=== PATIENT | female | born 1960 | race Asian ===

== ENCOUNTER 2016-10-17 17:48 | Observation (INO) | payer BC ==
[~2016-10-17] VITALS: Ht 160 cm; Wt 78.6 kg
[2016-10-17] MEDS ORDERED: ATEN50TA41 PO (18:16)
[2016-10-17] MEDS ORDERED: METF500T4 PO (18:16)
[2016-10-17] MEDS ORDERED: SODIUM CHLORIDE 0.9% 1,000 ML IV ONE (18:16)
[2016-10-17] MEDS ORDERED: SITA50TA PO (18:16)
[2016-10-17] MEDS ORDERED: LISI-170 PO (18:16)
[2016-10-17] MEDS ORDERED: MORPHINE SULFATE 4 MG/ML, 1ML IVPush ONE (18:30)
[2016-10-17] MEDS ORDERED: LORazepam 2 MG/ML, 1ML IVPush ONE (18:30)
[2016-10-17] MEDS ORDERED: ASPIRIN 81 MG TABLET CHEW PO ONE (18:30)
[2016-10-17] MEDS ORDERED: SODIUM CHLORIDE FLUSH 10ML SYR IVF ONE (18:30)
[2016-10-17] MEDS ORDERED: METOPROLOL 1 MG/ML, 5ML IVPush ONE (18:30)
[2016-10-17] MEDS ORDERED: NITROGLYCERIN OINT 2%, 1GM TP ONE ×2 (18:30→18:38)
[2016-10-17] MEDS ORDERED: MORPHINE SULFATE 4 MG/ML, 1ML ONE (18:38)
[2016-10-17] MEDS ORDERED: ONDANSETRON 2MG/ML, 2ML ONE (18:39)
[2016-10-17] MEDS ORDERED: LORazepam 2 MG/ML, 1ML ONE (18:39)
[2016-10-17] MEDS ORDERED: ASPIRIN 81 MG TABLET CHEW ONE (18:39)
[2016-10-17 18:57] LABS: BLOOD UREA NITROGEN 11 mg/dL (7-18)
[2016-10-17] MEDS ORDERED: PLEASE ENTER ALLERGIES MC SCH ×2 (19:00)
[2016-10-17] MEDS ORDERED: ONDANSETRON 2MG/ML, 2ML IVPush ONE (19:00)
[2016-10-17 19:02] LABS: ASPARTATE AMINO TRANSFERASE 105 U/L (15-37)
[2016-10-17 19:04] LABS: IS PT STATUS REG ER OR PRE ER? YES
[2016-10-17] MEDS ORDERED: ENALAPRILAT 1.25 MG/ML, 2ML IV ONE (20:00)
[2016-10-17] MEDS ORDERED: ACETAMINOPHEN 325 MG TABLET ONE (20:19)
[2016-10-17] MEDS ORDERED: ACETAMINOPHEN 325 MG TABLET PO ONE (20:30)
[2016-10-17 20:51] LABS: DAU SCREEN DISCLAIMER
[2016-10-17 21:01] LABS: PATH.CAST-FLAG NOT PRESENT; SPERM-FLAG NOT PRESENT; SRC-FLAG NOT PRESENT; XTAL-FLAG NOT PRESENT; YLC-FLAG NOT PRESENT
[2016-10-17] MEDS ORDERED: TEMAZEPAM 15 MG CAPSULE PO PRN (21:30)
[2016-10-17] MEDS ORDERED: DOCUSATE 100 MG CAPSULE PO PRN (21:30)
[2016-10-17] MEDS ORDERED: ONDANSETRON 2MG/ML, 2ML IVPush PRN (21:30)
[2016-10-17] MEDS: HEPARIN 5,000 UNITS/ML, 1ML SQ SCH (21:30)
[2016-10-17] MEDS ORDERED: ENALAPRILAT 1.25 MG/ML, 2ML IVPush PRN (21:30)
[2016-10-17] MEDS: ATENOLOL 50 MG TABLET PO SCH (21:30)
[2016-10-17] MEDS ORDERED: LABETALOL 5MG/ML 40ML VIAL IVPush PRN (21:30)
[2016-10-17] MEDS ORDERED: NITROGLYCERIN 0.4 MG BOTTLE (25 TABS) SL PRN (21:30)
[2016-10-17] MEDS ORDERED: morphine SULFATE 10 MG/ML, 1ML IVPush PRN (21:30)
[2016-10-17] MEDS ORDERED: hydrALAzine 20 MG/ML, 1ML IVPush PRN (21:30)
[2016-10-17 21:35] VITALS: BP 182/92
[2016-10-17 22:27] VITALS: BP 114/81
[2016-10-17 22:51] LABS: IS PT STATUS REG ER OR PRE ER? NO
[2016-10-18] MEDS: INSULIN ASPART 100 UNITS/ML, PEN SQ-INSULIN SCH ×4 (00:10→16:32)
[2016-10-18 04:50] VITALS: BP 156/89
[2016-10-18 05:03] LABS: BLOOD UREA NITROGEN 14 mg/dL (7-18)
[2016-10-18] MEDS: HEPARIN 5,000 UNITS/ML, 1ML SQ SCH ×2 (05:04→13:02)
[2016-10-18 05:11] LABS: IS PT STATUS REG ER OR PRE ER? NO
[2016-10-18] MEDS ORDERED: REGADENOSON 0.4 MG/5 ML SYRINGE ONE (08:23)
[2016-10-18] MEDS ORDERED: SITAGLIPTIN 50MG TABLET PO SCH (09:00)
[2016-10-18] MEDS ORDERED: LISINOPRIL 20 MG TABLET PO SCH (09:00)
[2016-10-18 10:49] VITALS: BP 186/96
[2016-10-18] MEDS: ATENOLOL 50 MG TABLET PO SCH (10:52)
[2016-10-18 13:02] VITALS: BP 164/96
[2016-10-18 13:54] VITALS: BP 152/88
== END 2016-10-18 19:53 | disposition home or self-care (01) ==
LOC: ED 20:24 → INTOOBSV 20:40 → EDIP 20:40 → 5SO 22:00
PROVIDERS: ADMIT Internal Medicine; ATTEND Internal Medicine
DX: R07.89 Other chest pain (principal); I16.0 Hypertensive urgency; E11.9 Type 2 diabetes mellitus without complications; E66.9 Obesity, unspecified; E78.5 Hyperlipidemia, unspecified; E87.1 Hypo-osmolality and hyponatremia; F41.9 Anxiety disorder, unspecified; I10 Essential (primary) hypertension; I34.0 Nonrheumatic mitral (valve) insufficiency
CPT/HCPCS: 36415; 71010; 78452; 80048; 80053; 80061; 80307; 81001; 82962; 83036; 84439; 84443; 84484; 85025; 93005; 93017; 93306; 96361; 96372; 96374; 96375; 99285; A9502; C9898; G0378; J1815; J2060; J2785; J7030